=== PATIENT | male | born 1945 | race Caucasian/White ===

== ENCOUNTER 2020-02-26 20:52 | Inpatient (IN) | payer OTHER ==
[~2020-02-26] VITALS: Ht 175.3 cm; Wt 83.9 kg
[2020-02-26] MEDS ORDERED: VASOTEC10 MG (21:10)
[2020-02-26] MEDS ORDERED: PROTONIX20 MG (21:11)
== END 2020-02-29 09:43 | disposition home or self-care (01) | DRG 389 ==
LOC: ER 20:52 → SURH 02-27 00:57 → SEC-K 02-27 00:57 → SURH 02-27 08:59
PROVIDERS: ADMIT Surgery; ATTEND Surgery
PROC: 0DH67UZ Insertion of Feeding Device into Stomach, Via Natural or Artificial Opening (ICD-10-PCS; principal; 2020-02-27)
PROC: 3E0G76Z Introduction of Nutritional Substance into Upper GI, Via Natural or Artificial Opening (ICD-10-PCS; 2020-02-27)
PROC: BW21ZZZ Computerized Tomography (CT Scan) of Abdomen and Pelvis (ICD-10-PCS; 2020-02-27)
DX: K56.690 Other partial intestinal obstruction (principal); R65.10 Systemic inflammatory response syndrome (SIRS) of non-infectious origin without acute organ dysfunction; N21.0 Calculus in bladder; R11.2 Nausea with vomiting, unspecified; K76.0 Fatty (change of) liver, not elsewhere classified; I10 Essential (primary) hypertension; Z20.828 Contact with and (suspected) exposure to other viral communicable diseases

== ENCOUNTER 2021-10-14 08:00 | Outpatient (CLI) | payer OTHER ==
[~2021-10-14 08:00] MED LIST: PROTONIX20 MG; VASOTEC10 MG
== END 2021-10-14 08:30 | disposition home or self-care (01) ==
LOC: PPH VACUNA 08:00
PROVIDERS: ATTEND Emergency Medicine Pediatric Emergency Medicine
DX: Z23 Encounter for immunization (principal)